=== PATIENT | female | born 1980 | race Caucasian/White ===

== ENCOUNTER 2016-08-29 13:08 | Emergency (ER) | payer OTHER ==
[~2016-08-29] VITALS: Ht 157.5 cm; Wt 72.5 kg
[~2016-08-29 13:08] MED LIST: AZO95TAB PO; DIPH1TAB36 PO; MOBI15TA PO; ULTR50TA5 PO
[2016-08-29 13:15] VITALS: BP 136/94; PULSE 103; PULSE 105; RESP 18; TEMP 98.5; O2SAT 97
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
[2016-08-29 13:55] LABS: AUTOMATED NEUTROPHIL # 6.8 TH/MM3 (1.8-7.7); BASOPHIL % 0.4 % (0.0-2.0); EOSINOPHIL # 0.1 TH/MM3 (0-0.4); EOSINOPHIL % 0.7 % (0.0-4.0); HEMO FLAGS DIFF FINAL; LYMPH % 14.5 % (9.0-44.0); LYMPHOCYTE # 1.2 TH/MM3 (1.0-4.8); MEAN CELL VOLUME 85.6 FL (80.0-100.0); MEAN CORPUSCULAR HEMOGLOBIN 29.4 PG (27.0-34.0); MEAN CORPUSCULAR HGB CONC 34.4 % (32.0-36.0); MONO % 4.5 % (0.0-8.0); NEUT % 79.9 % (16.0-70.0); PLATELET COUNT 328 TH/MM3 (150-450); RED BLOOD COUNT 4.67 MIL/MM3 (4.00-5.30); RED CELL DISTRIBUTION WIDTH 13.3 % (11.6-17.2); WHITE BLOOD COUNT 8.5 TH/MM3 (4.0-11.0)
[2016-08-29 14:02] LABS: AMPHETAMINE, URINE NEG (NEG); BARBITURATES, URINE NEG (NEG); COCAINE, URINE NEG (NEG)
[2016-08-29 14:09] LABS: ANION GAP 10 MEQ/L (5-15); AST (GOT) 15 U/L (15-37); BICARBONATE 26.2 MEQ/L (21.0-32.0); BLOOD UREA NITROGEN 10 MG/DL (7-18); CHLORIDE 105 MEQ/L (98-107); GLOMERULAR FILTRATION RATE 66 ML/MIN (>89); POTASSIUM 3.6 MEQ/L (3.5-5.1); SODIUM (NA) 141 MEQ/L (136-145)
[2016-08-29 14:12] LABS: ALKALINE PHOSPHATASE 71 U/L (45-117); ALT (GPT) 24 U/L (10-53); TOTAL BILIRUBIN ADULT 0.2 MG/DL (0.2-1.0)
[2016-08-29 14:30] VITALS: BP 130/88; PULSE 100; RESP 18; TEMP 99.2; O2SAT 97
[2016-08-29] MEDS ORDERED: ACETAMINOPHEN 325 MG TAB PO ONE (16:45)
[2016-08-29] MEDS ORDERED: diphenhydrAMINE HCL 50 MG CAP PO ONE (16:45)
[2016-08-29 22:18] VITALS: BP 105/65; PULSE 81; RESP 18; O2SAT 98
[2016-08-30] MEDS ORDERED: IBUPROFEN 600 MG TAB PO ONE (01:30)
[2016-08-30 03:13] VITALS: BP 106/63; PULSE 88; RESP 17; O2SAT 99
[2016-08-30] MEDS ORDERED: DIPH1TAB36 PO (09:41)
[2016-08-30] MEDS ORDERED: MIDO200C PO (09:43)
[2016-08-30 10:00] VITALS: BP 130/89; PULSE 100; RESP 18
[2016-08-30] MEDS ORDERED: IBUPROFEN 800 MG TAB PO ONE (10:00)
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
== END 2016-08-30 11:05 | disposition home or self-care (01) ==
LOC: NEPC 13:08 → NEPJ 08-30 11:05
DX: R45.851 Suicidal ideations (principal); Z87.442 Personal history of urinary calculi; F43.25 Adjustment disorder with mixed disturbance of emotions and conduct
CPT/HCPCS: 80053; 80307; 84703; 85025; 99284; Q0163

== ENCOUNTER 2017-03-29 20:15 | Emergency (ER) | payer OTHER ==
[~2017-03-29] VITALS: Ht 157.5 cm; Wt 78.0 kg
[~2017-03-29 20:15] MED LIST changes: -AZO95TAB PO; +MIDO200C PO; -MOBI15TA PO; -ULTR50TA5 PO
[2017-03-29 20:33] VITALS: BP 135/85; PULSE 99; RESP 18; TEMP 98.8; O2SAT 97
[2017-03-29 21:03] LABS: BLOOD, URINE SMALL (NEG); GLUCOSE,URINE 100 mg/dL (NEG); KETONE, URINE NEG (NEG); NITRITE,URINE POS (NEG)
[2017-03-29 21:11] LABS: BACTERIA, URINE FEW /hpf; COMMENT (UR) CULTURE INDICATED; CULTURE IF INDICATED CULTURE INDICATED; RBC, URINE 0-3 /hpf (0-3); URINE COLOR ORANGE (YELLW/STRAW)
[2017-03-29] MEDS ORDERED: ZOFR4TAB PO (21:34)
[2017-03-29] MEDS ORDERED: CEPH-460 PO (21:34)
--- NOTE | 2017-03-29 21:34 | PD ---
HPI Chief Complaint: Complaint Time Seen by Provider: 20:52 Travel History International Travel<30 days: No Contact w/Intl Traveler<30days: No Traveled to known affect area: No History of Present Illness HPI Patient's 36-year-old female presents emergency department for evaluation of dysuria, suprapubic pain as well as left flank pain. Patient states she has a history of recurrent kidney and bladder infections and her pet technologist next that she might have interstitial cystitis. She's been taking Azo with minimal relief. Denies any fever minimal nausea without vomiting no diarrhea patient or vaginal bleeding or vaginal discharge. Symptoms are moderate for the past few days gradually worsening. PFSH Past Medical History Diminished Hearing: No Genitourinary: Yes (FREQUENT UTI, KIDNEY INFECTIONS) Insomnia: Yes Kidney Stones: Yes Reproductive: Yes (ruptured left ovarian cyst 2012) ?: Unknown LMP: "last week" : 2 Para: 2 Miscarriage: 0 : 0 Tubal Ligation: Yes (2003) Past Surgical History Abdominal Surgery: Yes (cholecystectomy 2009) Cholecystectomy: Yes Social History Alcohol Use: Yes (WINE OCCASIONALLY) Tobacco Use: No Substance Use: No Allergies-Medications (Allergen,Severity, Reaction): Coded Allergies: No Known Allergies (Verified , 03/29/17) Reported Meds & Prescriptions Reported Meds & Active Scripts Active Zofran (Ondansetron HCl) 4 Mg Tab 4 Mg PO Q6HR PRN Keflex (Cephalexin) 500 Mg Capsule 500 Mg PO Q6H 7 Days Review of Systems Except as stated in HPI: all other systems reviewed are Neg Physical Exam Narrative GENERAL: Well-nourished, well-developed patient. SKIN: Focused skin assessment warm/dry. HEAD: Normocephalic. EYES: No scleral icterus. No injection or drainage. NECK: Supple, trachea midline. No JVD or lymphadenopathy. CARDIOVASCULAR: Regular rate and rhythm without murmurs, gallops, or rubs. RESPIRATORY: Breath sounds equal bilaterally. No accessory muscle use. GASTROINTESTINAL: Abdomen soft, non-tender, nondistended. Minimal CVA tenderness on the left. MUSCULOSKELETAL: No cyanosis, or edema. BACK: Nontender without obvious deformity. No CVA tenderness. Data Data Last Documented VS Vital Signs Date Time Temp Pulse Resp B/P (MAP) Pulse Ox O2 Delivery O2 Flow Rate FiO2 03/29/17 22:04 03/29/17 20:33 98.8 99 18 97 Orders Orders Urinalysis - C+S If Indicated (03/29/17 20:21) Ed Urine Pregnancytest Poc (03/29/17 20:21) Urine Culture (03/29/17 20:00) Ed Discharge Order (03/29/17 21:34) Ibuprofen (Motrin) (03/29/17 21:45) Cephalexin (Keflex) (03/29/17 22:00) Labs Laboratory Tests Test 03/29/17 20:00 Urine Color ORANGE Urine Turbidity CLEAR Urine pH 5.0 Urine Specific [place] 1.005 Urine Protein 30 mg/dL Urine Glucose (UA) 100 mg/dL Urine Ketones NEG mg/dL Urine Occult Blood SMALL Urine Nitrite POS Urine Bilirubin NEG Urine Leukocyte Esterase LARGE Urine RBC 0-3 /hpf Urine WBC 25-49 /hpf Urine Squamous Epithelial Cells 6-8 /hpf Urine Bacteria FEW /hpf Microscopic Urinalysis Comment CULTURE INDICATED MDM Medical Decision Making Medical Screen Exam Complete: Yes Emergency Medical Condition: Yes Differential Diagnosis pyelonephritis, sepsis unlikely, cystitis. Narrative Course Patient roomed in emergency department, she appears well in no obvious distress. Has a couple Pyelonephritis. She's been able tolerate by mouth liquids at home. We'll place on empiric antibiotics, urine culture sent. Discussed symptomatic management returned ED criteria. She stable for discharge. Diagnosis Primary Impression: Pyelonephritis Med/Other Pt SpecificInfo: Prescription(s) given Scripts Ondansetron (Zofran) 4 Mg Tab 4 MG PO Q6HR Y for NAUSEA OR VOMITING, #20 TAB 0 Refills Prov: Dionte Marcelino MD 03/29/17 Cephalexin (Keflex) 500 Mg Capsule 500 MG PO Q6H for Infection for 7 Days, #28 CAP 0 Refills Prov: Dionte Marcelino MD 03/29/17 Disposition: 01 DISCHARGE HOME Condition: Stable Dionte Marcelino MD Mar 29, 2017 21:34
[2017-03-29] MEDS ORDERED: IBUPROFEN 600 MG TAB PO ONE (21:45)
[2017-03-29] MEDS ORDERED: CEPHALEXIN MONOHYDRATE 500 MG CAP PO ONE (22:00)
== END 2017-03-29 21:55 | disposition home or self-care (01) ==
LOC: PHED 20:15
DX: N12 Tubulo-interstitial nephritis, not specified as acute or chronic (principal); B96.20 Unspecified Escherichia coli [E. coli] as the cause of diseases classified elsewhere
CPT/HCPCS: 81001; 84703; 87077; 87086; 87186; 99284